=== PATIENT | female | born 1995 | race Caucasian/White ===

== ENCOUNTER 2017-03-09 17:19 | Emergency (ER) | payer OTHER ==
[2017-03-09 18:36] VITALS: BP 115/61
== END 2017-03-09 18:36 | disposition home or self-care (01) ==
LOC: ED 17:19
DX: T40.3X1A Poisoning by methadone, accidental (unintentional), initial encounter (principal); R11.0 Nausea; J45.909 Unspecified asthma, uncomplicated; Y92.89 Other specified places as the place of occurrence of the external cause

== ENCOUNTER 2017-04-16 19:48 | Emergency (ER) | payer OTHER ==
[2017-04-16 20:04] VITALS: BP 120/66
== END 2017-04-16 20:56 | disposition left against medical advice (07) ==
LOC: ED 19:48
DX: Z53.21 Procedure and treatment not carried out due to patient leaving prior to being seen by health care provider (principal)

== ENCOUNTER 2017-04-17 09:52 | Emergency (ER) | payer OTHER ==
[~2017-04-17] VITALS: Ht 157.5 cm; Wt 81.4 kg
[2017-04-17 11:28] VITALS: BP 119/72
== END 2017-04-17 11:28 | disposition home or self-care (01) ==
LOC: ED 09:52
DX: O26.893 Other specified pregnancy related conditions, third trimester (principal); S51.852A Open bite of left forearm, initial encounter; Z3A.30 30 weeks gestation of pregnancy; W54.0XXA Bitten by dog, initial encounter; Y93.89 Activity, other specified; Y99.8 Other external cause status; Y92.89 Other specified places as the place of occurrence of the external cause
CPT/HCPCS: 90715

== ENCOUNTER 2017-11-24 20:02 | Emergency (ER) | payer OTHER ==
[~2017-11-24] VITALS: Ht 157.5 cm; Wt 85.3 kg
[2017-11-24 20:11] VITALS: Ht 157.5 cm; Wt 85.3 kg
[2017-11-24 20:59] LABS: BASOPHIL % 0.4 % (0-2); PLATELET COUNT 248 x10^3mcL (130-400); RED CELL DISTRIBUTION WIDTH 12.9 % (11.5-14.5)
[2017-11-24 21:03] LABS: CALCIUM 8.7 mg/dL (8.5-10.1); CARBON DIOXIDE 27.9 mmol/L (21-32); CHLORIDE SERUM 103 mmol/L (98-107); CREATININE SERUM 0.7 mg/dL (0.6-1.0); GFR1 > 60 mL/min; GLUCOSE SERUM 92 mg/dL (74-106); POTASSIUM SERUM 3.4 mmol/L (3.5-5.1); SODIUM SERUM 141 mmol/L (136-145)
[2017-11-24 21:06] LABS: ALBUMIN 3.5 g/dL (3.4-5.0); ALKALINE PHOSPHATASE 81 U/L (46-116); ALT/SGPT 28 U/L (14-59); AST/SGOT 19 U/L (15-37); BILIRUBIN TOTAL 0.67 mg/dL (0.20-1.00)
[2017-11-24 21:49] VITALS: BP 117/74
== END 2017-11-24 21:49 | disposition home or self-care (01) ==
LOC: ED 20:02
PROVIDERS: Emergency Medicine
DX: F11.23 Opioid dependence with withdrawal (principal)
CPT/HCPCS: 36415; J2800; J7030; Q0162

== ENCOUNTER 2018-12-01 03:05 | Emergency (ER) | payer OTHER ==
[~2018-12-01] VITALS: Ht 162.6 cm; Wt 79.8 kg
[2018-12-01 03:15] VITALS: BP 146/94; Ht 162.6 cm; Wt 79.8 kg
== END 2018-12-01 05:21 | disposition home or self-care (01) ==
LOC: ED 03:05
DX: K04.7 Periapical abscess without sinus (principal)
CPT/HCPCS: J3010; Q0162

== ENCOUNTER 2019-01-08 20:28 | Emergency (ER) | payer OTHER ==
[~2019-01-08] VITALS: Ht 160 cm; Wt 78.9 kg
[2019-01-08 21:06] VITALS: Ht 160 cm; Wt 78.9 kg
[2019-01-08 22:13] VITALS: BP 107/75
== END 2019-01-08 22:13 | disposition home or self-care (01) ==
LOC: ED 20:28
DX: N39.0 Urinary tract infection, site not specified (principal); F11.10 Opioid abuse, uncomplicated; E03.9 Hypothyroidism, unspecified

== ENCOUNTER 2019-07-21 21:28 | Emergency (ER) | payer SELFPAY ==
[~2019-07-21] VITALS: Ht 157.5 cm; Wt 79.8 kg
[2019-07-21 21:37] VITALS: BP 103/71; Ht 157.5 cm; Wt 79.8 kg
== END 2019-07-22 01:36 | disposition left against medical advice (07) ==
LOC: ED 21:28
DX: Z53.21 Procedure and treatment not carried out due to patient leaving prior to being seen by health care provider (principal)

== ENCOUNTER 2019-07-22 11:37 | Emergency (ER) | payer MEDICAID ==
[~2019-07-22] VITALS: Ht 157.5 cm; Wt 79.8 kg
[2019-07-22 11:43] VITALS: Ht 157.5 cm; Wt 79.8 kg
[2019-07-22 13:50] VITALS: BP 135/82
== END 2019-07-22 13:50 | disposition home or self-care (01) ==
LOC: ED 11:37
DX: K08.89 Other specified disorders of teeth and supporting structures (principal); E05.90 Thyrotoxicosis, unspecified without thyrotoxic crisis or storm; F11.10 Opioid abuse, uncomplicated
CPT/HCPCS: J1885

== ENCOUNTER 2019-08-03 23:59 | Emergency (ER) | payer MEDICAID ==
[~2019-08-03] VITALS: Ht 157.5 cm; Wt 78.9 kg
[2019-08-04 00:14] VITALS: BP 127/76; Ht 157.5 cm; Wt 78.9 kg
== END 2019-08-04 01:07 | disposition home or self-care (01) ==
LOC: ED 23:59
DX: K02.9 Dental caries, unspecified (principal); E05.90 Thyrotoxicosis, unspecified without thyrotoxic crisis or storm

== ENCOUNTER 2020-01-28 23:57 | Emergency (ER) | payer BC, MEDICAID ==
[~2020-01-28] VITALS: Ht 162.6 cm; Wt 74.4 kg
[2020-01-29 00:10] VITALS: BP 117/78
== END 2020-01-29 00:41 | disposition home or self-care (01) ==
LOC: ED 23:57
DX: K08.89 Other specified disorders of teeth and supporting structures (principal); E03.9 Hypothyroidism, unspecified

== ENCOUNTER 2020-12-05 01:59 | Emergency (ER) | payer MEDICAID ==
[~2020-12-05] VITALS: Ht 157.5 cm; Wt 72.7 kg
[2020-12-05 02:07] VITALS: Ht 157.5 cm; Wt 72.7 kg
[2020-12-05 03:54] VITALS: BP 138/88
== END 2020-12-05 03:54 | disposition home or self-care (01) ==
LOC: ED 01:59
DX: K08.89 Other specified disorders of teeth and supporting structures (principal); K02.9 Dental caries, unspecified; F17.210 Nicotine dependence, cigarettes, uncomplicated; E05.90 Thyrotoxicosis, unspecified without thyrotoxic crisis or storm